=== PATIENT | male | born 1980 | race Caucasian/White ===

== ENCOUNTER 2021-11-11 16:45 | Emergency (ER) | payer OTHER ==
--- NOTE | 2021-11-11 17:27 | XRAY Report ---
PROCEDURE: Shoulder 3 View RT INDICATIONS: injury with pain TECHNIQUE: 3 views of the shoulder were acquired. COMPARISON: None. FINDINGS: Bones: Mid right clavicular fracture with overlapping fracture fragments in bayonet apposition. No s uspicious bony lesions. Visualized ribs appear intact. Soft tissues: No suspicious soft tissue calcifications. No pneumothorax IMPRESSION: Mid right clavicular fracture with overlapping fracture fragments Reviewed by: Juan Pimentel MD on 11/11/2021 4:26 PM AKDT Approved by: Juan Pimentel MD on 11/11/2021 4:26 PM AKDT Station ID: [id number]
[2021-11-11] MEDS ORDERED: HYDROcod/ACETAM 5/325 MG TABLET PO STA (18:34)
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
[2021-11-11 18:49] VITALS: BP 153/94
== END 2021-11-11 18:50 | disposition home or self-care (01) ==
LOC: ED 16:45
DX: S42.021A Displaced fracture of shaft of right clavicle, initial encounter for closed fracture (principal); V19.9XXA Pedal cyclist (driver) (passenger) injured in unspecified traffic accident, initial encounter; Y93.55 Activity, bike riding
CPT/HCPCS: 73030; 99283; 99284; A9270

== ENCOUNTER 2021-11-16 10:52 | Emergency (ER) | payer OTHER ==
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
[2021-11-16 12:10] VITALS: BP 134/90
--- NOTE | 2021-11-16 14:44 | Ultrasound Report ---
PROCEDURE: Duplex Ext Veins Right INDICATIONS: RUE discoloration TECHNIQUE: Real-time imaging, as well as color and pulse Doppler interrogation, were performed of the right uppe r extremity deep veins from the right lower neck to the forearm. COMPARISON: None. FINDINGS: The deep veins are normally compressible, and free of intraluminal thrombus. Color and pu lse Doppler demonstrate normal phasic intraluminal flow. There is normal augmentation response to di stal compression maneuver. IMPRESSION: No evidence of DVT in visualized right upper extremity veins. Reviewed by: Sloan Armendariz MD on 11/16/2021 2:42 PM PDT Approved by: Sloan Armendariz MD on 11/16/2021 2:42 PM PDT Station ID: [id number]
== END 2021-11-16 13:40 | disposition home or self-care (01) ==
LOC: ED 10:52
DX: S42.001D Fracture of unspecified part of right clavicle, subsequent encounter for fracture with routine healing (principal); X58.XXXD Exposure to other specified factors, subsequent encounter; Y93.55 Activity, bike riding; R22.31 Localized swelling, mass and lump, right upper limb
CPT/HCPCS: 99282; 99284

== ENCOUNTER 2021-11-19 08:00 | Outpatient (CLI) | payer OTHER ==
--- NOTE | 2021-11-19 20:18 | XRAY Report ---
PROCEDURE: Clavicle RT INDICATIONS: CLAVICLE PAIN TECHNIQUE: 2 views of the clavicle were acquired. COMPARISON: None. FINDINGS: Bones: Oblique fracture through the mid right clavicle noted with inferior displacement of the distal fracture fragment by over 1 bone diameter. Soft tissues: No suspicious soft tissue calcifications. IMPRESSION: Distracted right clavicular fracture Reviewed by: Juan Pimentel MD on 11/19/2021 7:14 PM LANCE Approved by: Juan Pimentel MD on 11/19/2021 7:14 PM AKDENISE Station ID: [id number]
== END 2021-11-19 23:59 | disposition home or self-care (01) ==
LOC: DI.WOS 08:00
PROVIDERS: ATTEND Orthopaedic Surgery
DX: S42.021A Displaced fracture of shaft of right clavicle, initial encounter for closed fracture (principal)

== ENCOUNTER 2021-11-21 09:23 | Day surgery (SDC) | payer OTHER ==
[2021-11-21] MEDS ORDERED: LACTATED RINGERS 1,000 ML IV ONE ×2 (09:30→15:21)
[2021-11-21] MEDS ORDERED: CELECOXIB 100 MG CAPSULE PO ONE (09:40)
[2021-11-21] MEDS ORDERED: ACETAMINOPHEN 500 MG TABLET PO ONE (09:41)
[2021-11-21] MEDS ORDERED: CEFAZOLIN SODIUM IN 0.9 % NACL 2 GM/50 ML BAG IV ONE (09:41)
--- NOTE | 2021-11-21 11:08 | ANESTHESIA ---
Pre-Anesthesia VS, & Labs - Diagnosis DISPLACED RIGHT CLAVICLE - Procedure ORIF CLAVICLE Vital Signs: Temp Pulse Resp BP Pulse Ox 36.6 C 66 16 133/97 H 100 11/21/21 09:46 11/21/21 09:46 11/21/21 09:46 11/21/21 09:46 11/21/21 09:46 Height: 6 ft Weight (kg): 99 kg Body Mass Index: 29.6 BMI Classification: Overweight - NPO >8 hours Home Medications and Allergies Verapamil HCl [Verapamil ER] 240 mg PO DAILY 11/16/21 Allergies/Adverse Reactions: Allergies Allergy/AdvReac Type Severity Reaction Status Date / Time No Known Drug Allergies Allergy Verified 11/16/21 11:01 Anes History & Medical History - Anesthetic History Anesthesia Complications: reports: No previous complications Family history of Anesthesia Complications: Denies Family history of Malignant Hyperthermia: Denies - Medical History Cardiovascular: reports: None Pulmonary: reports: None Gastrointestinal: reports: None Urinary: reports: None Neuro: reports: Migraines (TAKES VERAPAMIL FOR MIGRAINES - NOT TAKEN IN 10 DAYS) Musculoskeletal: reports: None Endocrine/Autoimmune: reports: None Skin: reports: None Smoking Status: Never smoker History of Cancer?: No - Surgical History Eyes Ears Nose Throat (EENT): reports: Tonsil/Adenoidectomy, Other Exam General: Alert Dental: WNL Mouth Openin Fingerbreadth Neck Mobility: Normal Mallampati classification: II Thyromental Distance: 4-6 cm Respiratory: Lungs clear, Normal breath sounds, No respiratory distress, No accessory muscle use Cardiovascular: Regular rate, Normal S1, Normal S2, No murmurs Mental/Cognitive Status: Alert/Oriented X3 Cognitive Status: Within normal limits Plan Anesthesia Type: General, Interscalene Block, Other (SUPERFICIAL CERVICAL BLOCK) Consent for Procedure(s) Verified and Reviewed: Yes Code Status: Attempt Resuscitation ASA classification: 1-Healthy patient Is this case an emergency?: No
[2021-11-21] MEDS ORDERED: LIDOCAINE 2%-EPI 1:100000 20 ML MDV ONE (11:20)
[2021-11-21] MEDS ORDERED: BUPIVACAINE 0.25% PF 10 ML VIAL ONE (11:21)
[2021-11-21] MEDS ORDERED: VANCOMYCIN 1 GM VIAL ONE (11:21)
[2021-11-21] MEDS ORDERED: fentaNYL 100 MCG/2 ML VIAL ONE ×2 (11:27→12:21)
[2021-11-21] MEDS ORDERED: MIDAZOLAM 2 MG/2 ML VIAL ONE (11:27)
[2021-11-21] MEDS ORDERED: ROPIVACAINE 0.5% PF 20 ML AMPULE ONE (11:27)
[2021-11-21] MEDS ORDERED: ROCURONIUM 50 MG/5 ML VIAL ONE ×3 (11:28→14:33)
[2021-11-21] MEDS ORDERED: LIDOCAINE-MPF 2% 5 ML VIAL ONE (11:28)
[2021-11-21] MEDS ORDERED: PROPOFOL 200 MG/20 ML VIAL IVP ONE (11:28)
[2021-11-21] MEDS ORDERED: DEXAMETHASONE 4 MG/ML VIAL ONE ×2 (11:28→13:01)
[2021-11-21] MEDS ORDERED: ONDANSETRON 4 MG/2 ML VIAL ONE (13:01)
[2021-11-21] MEDS ORDERED: HYDROmorphone 0.5 MG/0.5 ML SYRINGE IVP PRN (14:50)
[2021-11-21] MEDS ORDERED: fentaNYL 100 MCG/2 ML VIAL IVP PRN ×2 (14:50→15:33)
[2021-11-21] MEDS ORDERED: METOCLOPRAMIDE 10 MG/2 ML VIAL IVP PRN (14:50)
[2021-11-21] MEDS ORDERED: NALOXONE 0.4 MG/ML VIAL IVP PRN (14:50)
[2021-11-21] MEDS ORDERED: MORPHINE 2 MG/ML CARPUJECT IVP PRN (14:50)
[2021-11-21] MEDS ORDERED: ePHEDrine 50 MG/ML VIAL IVP PRN (14:50)
[2021-11-21] MEDS ORDERED: ATROPINE ABBOJECT 1 MG/10 ML SYRINGE IVP PRN (14:50)
[2021-11-21] MEDS ORDERED: ONDANSETRON 4 MG/2 ML VIAL IVP PRN (14:50)
[2021-11-21] MEDS ORDERED: LACTATED RINGERS 1,000 ML IV SCH (15:00)
[2021-11-21] MEDS ORDERED: SUGAMMADEX 200 MG/2 ML VIAL IVP ONE (15:05)
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
[2021-11-21] MEDS ORDERED: oxyCODONE 5 MG TABLET PO PRN (15:26)
[2021-11-21 16:12] VITALS: BP 129/72
--- NOTE | 2021-11-21 16:24 | ANESTHESIA POST OP EVALUATION ---
Anesthesia Post Eval - Post Anesthesia Eval Vitals: Last Vital Signs Temp 36.5 C 11/21/21 16:11 Pulse 70 11/21/21 16:11 Resp 14 11/21/21 16:11 BP 129/72 11/21/21 16:11 Pulse Ox 96 11/21/21 16:11 CV Function Including HR & BP: Stable Pain Control: Satisfactory Nausea & Vomiting: Negative Mental Status: Baseline Respiratory Status: Airway Patent Hydration Status: Satisfactory Anesthesia Complications: None
--- NOTE | 2021-11-21 16:43 | XRAY Report ---
PROCEDURE: OR C-Arm Procedure INDICATIONS: ORIF Clavicle TECHNIQUE: 2 views of the shoulder were obtained. COMPARISON: X-ray clavicle 11/19/2021 FINDINGS: Limited intraoperative fluoroscopic images demonstrate ORIF of the mid right clavicle. There is good anatomic alignment and hardware is intact. IMPRESSION: Clavicular ORIF. Reviewed by: Angie Torrez MD on 11/21/2021 4:41 PM PDT Approved by: Angie Torrez MD on 11/21/2021 4:41 PM PDT Station ID: [id number]
== END 2021-11-21 09:24 | disposition home or self-care (01) ==
LOC: SDS 09:23
PROVIDERS: ATTEND Orthopaedic Surgery
PROC: 0PS904Z Reposition Right Clavicle with Internal Fixation Device, Open Approach (ICD-10-PCS; principal; 2021-11-21 10:30)
DX: S42.021A Displaced fracture of shaft of right clavicle, initial encounter for closed fracture (principal)
CPT/HCPCS: 23515; A9270; C1713; J0690; J3370; J7120

== ENCOUNTER 2022-01-03 08:00 | Outpatient (CLI) | payer OTHER ==
--- NOTE | 2022-01-03 18:03 | XRAY Report ---
PROCEDURE: Clavicle RT INDICATIONS: CLAVICLE ORIF TECHNIQUE: 2 views of the clavicle were acquired. COMPARISON: 12/04/2021. FINDINGS: Bones: Again noted is prior ORIF of right clavicle with anatomic clavicular alignment. No acute fract ure or dislocation. No gross hardware loosening or failure. Mild acromioclavicular joint osteoarthrit ic changes are seen. No suspicious bony lesions. Soft tissues: No suspicious soft tissue calcifications. IMPRESSION: Prior ORIF of right clavicle with anatomic clavicular alignment. No acute fracture or dislocation. No gross hardware complication. Mild acromioclavicular joint osteoarthritis. Reviewed by: Sloan Armendariz MD on 01/03/2022 6:02 PM PDT Approved by: Sloan Armendariz MD on 01/03/2022 6:02 PM PDT Station ID: [id number]
== END 2022-01-03 23:59 | disposition home or self-care (01) ==
LOC: DI.WOS 08:00
PROVIDERS: ATTEND Orthopaedic Surgery
DX: S42.021D Displaced fracture of shaft of right clavicle, subsequent encounter for fracture with routine healing (principal)

== ENCOUNTER 2022-03-14 12:51 | Outpatient (CLI) | payer OTHER ==
--- NOTE | 2022-03-14 18:02 | XRAY Report ---
PROCEDURE: Clavicle RT INDICATIONS: RIGHT CLAVICLE ORIF TECHNIQUE: 2 views of the clavicle were acquired. COMPARISON: 01/31/2022 FINDINGS: Bones: There is a compression plate and multiple screws in the right clavicle fixing a midshaft clavi nancy fracture. The hardware is intact. The fracture plane is blurred. No new fracture, dislocation, or separation. Soft tissues: No suspicious soft tissue calcifications. IMPRESSION: Continued healing of fixed right clavicle fracture. Reviewed by: Georgina Glass MD on 03/14/2022 6:00 PM PST Approved by: Georgina Glass MD on 03/14/2022 6:00 PM PST Station ID: [id number]
== END 2022-03-14 12:52 | disposition home or self-care (01) ==
LOC: DI.WOS 12:51
PROVIDERS: ATTEND Orthopaedic Surgery
DX: S42.021D Displaced fracture of shaft of right clavicle, subsequent encounter for fracture with routine healing (principal)

== ENCOUNTER 2022-05-28 16:50 | Outpatient (CLI) | payer OTHER ==
--- NOTE | 2022-05-28 18:07 | XRAY Report ---
PROCEDURE: Clavicle RT INDICATIONS: RIGHT CLAVICLE ORIF TECHNIQUE: 2 views of the clavicle were acquired. COMPARISON: Right clavicle radiographs 03/14/2022 FINDINGS: Bones: Patient is post plate and screw fixation of a right clavicle fracture as before. Hardware appe ars intact. Fracture alignment is not significantly changed. Soft tissues: No suspicious soft tissue calcifications. IMPRESSION: Patient is post plate and screw fixation of a right clavicle fracture as before. Hardware appears int act. Fracture alignment is not significantly changed. Reviewed by: Dom Robertson MD on 05/28/2022 6:06 PM PST Approved by: Dom Robertson MD on 05/28/2022 6:06 PM PST Station ID: [id number]
== END 2022-05-28 16:54 | disposition home or self-care (01) ==
LOC: DI.WOS 16:50
PROVIDERS: ATTEND Orthopaedic Surgery
DX: S42.021D Displaced fracture of shaft of right clavicle, subsequent encounter for fracture with routine healing (principal)